=== PATIENT | female | born 2005 | race Caucasian/White ===

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

== ENCOUNTER 2024-03-25 11:11 | Outpatient (CLI) | payer BC, SELFPAY ==
--- NOTE | ~2024-03-25 | US_ITS ---
EXAMINATION: US thyroid DATE: 03/25/2024 11:27 INDICATION: Neck fullness TECHNIQUE: Multiple ultrasound images of the thyroid were obtained. COMPARISON: None. FINDINGS: The right thyroid lobe measures 3.9 x 1.1 x 2.2 cm. The left thyroid lobe measures 4.3 x 1.3 x 1.5 c m. No discrete nodules identified. There is normal echotexture, echogenicity and vascular flow throu ghout the thyroid gland. IMPRESSION: 1. Normal thyroid ultrasound. Reviewed, dictated and finalized at location B.
== END 2024-03-25 11:12 | disposition home or self-care (01) ==
LOC: MICIMG 11:15
PROVIDERS: PCP Pediatrics; Visit Provider Nurse Practitioner Family
DX: R22.1 Localized swelling, mass and lump, neck (principal)
CPT/HCPCS: 76536